=== PATIENT | female | born 1955 | race Two or more races ===

== ENCOUNTER 2020-12-04 09:08 | Emergency (ER) | payer MEDICARE ==
[~2020-12-04] VITALS: Ht 152.4 cm; Wt 72.7 kg
[2020-12-04 09:32] VITALS: BP 128/79
[2020-12-04] MEDS ORDERED: ORPH100T2 PO (12:09)
[2020-12-04] MEDS ORDERED: IBUP-1984 PO (12:09)
== END 2020-12-04 12:15 | disposition home or self-care (01) ==
LOC: ER 09:08
DX: S39.012A Strain of muscle, fascia and tendon of lower back, initial encounter (principal); X58.XXXA Exposure to other specified factors, initial encounter; Z79.899 Other long term (current) drug therapy; Y93.89 Activity, other specified; Y92.89 Other specified places as the place of occurrence of the external cause; Y99.8 Other external cause status
CPT/HCPCS: 99283

== ENCOUNTER 2022-01-24 11:04 | Outpatient (CLI) | payer OTHER ==
[~2022-01-24 11:04] MED LIST: ORPH100T2 PO
== END 2022-01-24 23:59 | disposition home or self-care (01) ==
LOC: RAD 11:04
PROVIDERS: ATTEND Orthopaedic Surgery Hand Surgery
DX: Z01.810 Encounter for preprocedural cardiovascular examination (principal); R79.89 Other specified abnormal findings of blood chemistry; M18.11 Unilateral primary osteoarthritis of first carpometacarpal joint, right hand
CPT/HCPCS: 93005

== ENCOUNTER 2022-06-13 10:45 | Outpatient (CLI) | payer OTHER ==
[~2022-06-13 10:45] MED LIST changes: -ORPH100T2 PO; +ORPH100T4 PO
== END 2022-06-13 23:59 | disposition home or self-care (01) ==
LOC: RAD 10:45
PROVIDERS: ATTEND Orthopaedic Surgery Hand Surgery
DX: Z01.810 Encounter for preprocedural cardiovascular examination (principal); M18.11 Unilateral primary osteoarthritis of first carpometacarpal joint, right hand; M18.12 Unilateral primary osteoarthritis of first carpometacarpal joint, left hand; R79.89 Other specified abnormal findings of blood chemistry
CPT/HCPCS: 93005